=== PATIENT | male | born 1985 | race African-American/Black ===

== ENCOUNTER 2018-02-01 16:19 | Emergency (ER) | payer SELFPAY ==
[~2018-02-01] VITALS: Ht 180.3 cm; Wt 79.4 kg
[2018-02-01 16:35] VITALS: BP 119/51
[2018-02-01] MEDS ORDERED: SODIUM CHLORIDE 0.9% 1,000 ML IV ONE (16:45)
[2018-02-01] MEDS ORDERED: KETOROLAC TROMETH 30 MG/ML 1ML VIAL IV ONE (16:45)
== END 2018-02-01 17:00 ==
LOC: EDBD 16:23 → ER 16:25
DX: S46.911A Strain of unspecified muscle, fascia and tendon at shoulder and upper arm level, right arm, initial encounter (principal); T67.9XXA Effect of heat and light, unspecified, initial encounter; F17.210 Nicotine dependence, cigarettes, uncomplicated; W19.XXXA Unspecified fall, initial encounter; Y93.89 Activity, other specified; Y99.8 Other external cause status; Y92.89 Other specified places as the place of occurrence of the external cause
CPT/HCPCS: 93005; 99283; J7030